=== PATIENT | female | born 1980 | race Caucasian/White ===

== ENCOUNTER 2018-02-19 07:36 | Outpatient (CLI) | payer OTHER ==
--- NOTE | 2018-02-19 10:12 | RAD ---
LUMBAR SPINE 3 VIEWS: Date: 02/19/18 HISTORY: 37-year-old female with history of lumbar radiculopathy, bilateral sciatica pain with more pain down left leg for 3 years. FINDINGS: Flexion, extension, and neutral standing lateral views of the lumbar spine are performed. There is ev idence of bilateral pars defects at L5. No significant abnormal translation between flexion and exten rubén. No significant malalignment. IMPRESSION: Bilateral pars defects at L5 without significant abnormal translation. POS: [facility]
--- NOTE | 2018-02-19 10:21 | MRI ---
MRI LUMBAR SPINE: Date: 02/19/18 HISTORY: Back pain, M54.17. TECHNIQUE: Multiplanar, multisequence noncontrast enhanced MRI lumbar spine obtained. COMPARISON: Previous exam from 11/01/16. FINDINGS/IMPRESSION: No significant evidence of disc desiccation seen. The central canal and neural foramen are patent padmini aterally. Bilateral pars interarticularis defects seen. No significant degree of anterolisthesis seen. The cent ral canal and neural foramen are patent. MRI appearance is stable and unchanged since the previous ex am from approximately 16 months earlier. POS: [facility]
== END 2018-02-19 07:37 | disposition home or self-care (01) ==
LOC: TBSIIMAG 07:36
PROVIDERS: ATTEND Nurse Practitioner Family
DX: M54.16 Radiculopathy, lumbar region (principal)
CPT/HCPCS: 72100; 72148

== ENCOUNTER 2018-03-25 05:37 | Day surgery (SDC) | payer OTHER ==
[2018-03-19 16:43] VITALS: BMI 31.7
[2018-03-25] MEDS ORDERED: CEFAZOLIN/Water 2 GM/20 ML SYRINGE ONE (06:15)
[2018-03-25] MEDS ORDERED: Fentanyl 100 MCG/2 ML VIAL ONE ×4 (06:22→09:22)
[2018-03-25] MEDS ORDERED: Lidocaine 2% Jelly 5 ML TUBE ONE (06:22)
[2018-03-25] MEDS ORDERED: Midazolam HCl 2 mg/2 ml Vial ONE ×2 (06:22→06:53)
[2018-03-25] MEDS ORDERED: Sodium Chloride 0.9% 10 ML ONE (06:25)
[2018-03-25] MEDS ORDERED: Clindamycin/D5W 900 mg/50 ml Premix Bag ONE (06:28)
[2018-03-25] MEDS ORDERED: Levofloxacin 500 mg/D5W 100 ml Premix Bag ONE (06:28)
--- NOTE | 2018-03-25 08:54 | OP ---
DATE OF PROCEDURE: 03/25/2018 SURGEON: Manuel Skaggs M.D. SALES AND SERVICE ASSOCIATE: Ab Larson PA-C PROCEDURES: L5-S1 laminectomy, facetectomy, foraminotomy, posterolateral arthrodesis, pedicle screw instrumentation, demineralized bone matrix and local morselized autograft. PROCEDURE IN DETAIL: The patient was brought in the room, intubated. She was rolled in prone positi on on gel-filled chest rolls. Incision made exposing L5 and S1 bilaterally and our level was confirm ed by x-ray. As expected, she had bilateral pars defects at L5. After performing foraminal decompre ssion, we performed pedicle screw instrumentation at L5 and S1 using lateral fluoroscopic guidance an d positioning was confirmed with rotational x-ray. Romulo was secured between the screws, connected by nuts which were final tightened. The posterolateral surfaces were prepared for the purpose of arthro desis and a combination of demineralized bone matrix and local morselized autograft, laid over the po sterolateral surfaces for the purpose of arthrodesis. Vancomycin powder was then applied and the wou nd was closed in anatomic layers.
[2018-03-25] MEDS ORDERED: Morphine 4 MG/ML VIAL ONE (09:47)
[2018-03-25] MEDS ORDERED: HYDROcodone/Acetaminophen 5/325 mg Tablet ONE (10:34)
[2018-03-25] MEDS ORDERED: tiZANidine HCl 4 MG TAB ONE (11:44)
[2018-03-25] MEDS ORDERED: Lidocaine 1% PF 5 ML VIAL ONE (12:23)
[2018-03-25] MEDS ORDERED: PROPOFOL 200 MG/20 ML VIAL ONE (12:23)
[2018-03-25] MEDS ORDERED: ePHEDrine/0.9% NaCl/PF SYRINGE 50 mg/10 ml ONE (12:23)
[2018-03-25] MEDS ORDERED: Dexamethasone 20 MG/5 ML VIAL ONE (12:23)
[2018-03-25] MEDS ORDERED: Ondansetron HCl/PF 4 MG/2 ML Vial ONE (12:23)
[2018-03-25] MEDS ORDERED: Glycopyrrolate 0.2 MG/ML 5 ML SYRINGE ONE (12:23)
[2018-03-25] MEDS ORDERED: PHENYLEPHRINE-NS 100 MCG/ML 10 ML SYRINGE ONE (12:23)
== END 2018-03-25 12:55 | disposition home or self-care (01) ==
LOC: SDC 05:37
PROVIDERS: ATTEND Neurological Surgery
PROC: 0SG30J1 Fusion of Lumbosacral Joint with Synthetic Substitute, Posterior Approach, Posterior Column, Open Approach (ICD-10-PCS; principal; 2018-03-25)
PROC: 0SG3071 Fusion of Lumbosacral Joint with Autologous Tissue Substitute, Posterior Approach, Posterior Column, Open Approach (ICD-10-PCS; principal; 2018-03-25)
DX: M47.26 Other spondylosis with radiculopathy, lumbar region (principal); J45.909 Unspecified asthma, uncomplicated; G89.29 Other chronic pain; M19.90 Unspecified osteoarthritis, unspecified site; F32.9 Major depressive disorder, single episode, unspecified; Z87.891 Personal history of nicotine dependence; Z79.899 Other long term (current) drug therapy; Z88.1 Allergy status to other antibiotic agents
CPT/HCPCS: 76001; 96374; 96375; 96376; A4216; C1713; C1768; J1100; J1956; J2001; J2250; J2270; J2405; J2704; J3010; J3370; J3490

== ENCOUNTER 2018-04-09 13:18 | Outpatient (CLI) | payer OTHER ==
--- NOTE | 2018-04-09 14:16 | RAD ---
2-3 VIEW LUMBAR SPINE RADIOGRAPHS: Indication: Prior lumbar surgery. History: Lumbar radiculopathy/pain. FINDINGS: Posterior metallic fusion spans L5-S1 with bilateral pedicle screws and bilateral vertical interconne cting rods. The lumbar spine vertebral body heights are maintained. No significant subluxation. Disc space heights are preserved. Minimal right convexity curvature is centered at the upper lumbar spine. IMPRESSION: Post-operative lumbosacral spine without acute hardware complication identified. POS: [facility]
== END 2018-04-09 13:19 | disposition home or self-care (01) ==
LOC: SCSRAD 13:18
PROVIDERS: ATTEND Physician Assistant
DX: M54.5 Low back pain (principal); Z98.890 Other specified postprocedural states
CPT/HCPCS: 72100

== ENCOUNTER 2018-05-14 14:54 | Outpatient (CLI) | payer OTHER ==
--- NOTE | 2018-05-14 15:39 | RAD ---
LUMBAR SPINE 2 VIWS: COMPARISON: 04/09/18. HISTORY: Lumbar spondylolisthesis. Right leg pain. FINDINGS: Uncomplicated lumbar fusion hardware at L5 and S1. Five lumbar-type vertebral bodies. No change in alignment. Disk space heights are stable. IMPRESSION: Uncomplicated and stable lumbosacral fusion. POS: [facility]
== END 2018-05-14 14:55 | disposition home or self-care (01) ==
LOC: TBSIIMAG 14:54
PROVIDERS: ATTEND Neurological Surgery
DX: M43.16 Spondylolisthesis, lumbar region (principal); Z98.1 Arthrodesis status
CPT/HCPCS: 72100

== ENCOUNTER 2018-08-20 15:18 | Outpatient (CLI) | payer OTHER ==
--- NOTE | 2018-08-20 17:02 | RAD ---
LUMBAR SPINE: 08/20/18 Two views. INDICATION: Back pain. Right leg pain. COMPARISON: 05/14/18. Pedicle screws are seen at L5 and S1. 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 Mild anterolist hesis at this level, unchanged from prior exam. Disc spaces are preserved. The other vertebral bodies maintain normal height and alignment. Facet hypertrophy at L4-5 and L5-S1. IMPRESSION: Postop changes at L5-S1 appears stable from the prior study of 05/14/18. POS: [facility]
== END 2018-08-20 15:19 | disposition home or self-care (01) ==
LOC: TBSIIMAG 15:18
PROVIDERS: ATTEND Neurological Surgery
DX: M54.16 Radiculopathy, lumbar region (principal); Z98.890 Other specified postprocedural states
CPT/HCPCS: 72100

== ENCOUNTER 2024-05-01 08:53 | Outpatient (CLI) | payer BC | END 2024-05-01 08:54 | disposition home or self-care (01) | LOC: SCSRAD 08:53 | PROVIDERS: ATTEND Family Medicine | DX: M25.561 Pain in right knee (principal) ==

== ENCOUNTER 2025-04-29 08:19 | Outpatient (CLI) | payer BC, OTHER | END 2025-04-29 08:20 | disposition home or self-care (01) | LOC: SCSMRI 08:19 | PROVIDERS: ATTEND Family Medicine | DX: M25.561 Pain in right knee (principal); M22.2X1 Patellofemoral disorders, right knee ==